=== PATIENT | male | born 1995 | race Caucasian/White ===

== ENCOUNTER → 2017-02-09 | Outpatient (CLI) | payer BC | END | disposition home or self-care (01) | LOC: C.RDSM 13:20 | PROVIDERS: ATTEND Physical Medicine & Rehabilitation Sports Medicine | DX: S83.512D Sprain of anterior cruciate ligament of left knee, subsequent encounter (principal); S83.282D Other tear of lateral meniscus, current injury, left knee, subsequent encounter; X58.XXXD Exposure to other specified factors, subsequent encounter ==